=== PATIENT | female | born 1960 ===

== ENCOUNTER 2024-03-27 18:37 | Emergency (ER) | payer MEDICARE | END 2024-03-27 18:54 | disposition left against medical advice (07) | LOC: ER 18:37 | DX: Z13.89 Encounter for screening for other disorder (principal); Z53.21 Procedure and treatment not carried out due to patient leaving prior to being seen by health care provider; W18.30XA Fall on same level, unspecified, initial encounter; Y93.89 Activity, other specified; Y92.89 Other specified places as the place of occurrence of the external cause; Y99.8 Other external cause status ==